=== PATIENT | male | born 1985 | race Caucasian/White ===

== ENCOUNTER 2021-05-16 15:48 | Outpatient (CLI) | payer OTHER, SELFPAY ==
--- NOTE | 2021-05-20 12:32 | WPDHOLTEREM ---
Holter/Event Monitor Holter/Event Monitor Date of procedure: 05/16/21 Holter/Event Procedure: 24 Hr Holter Monitor Indications: Palpitations Conclusion: 1. 24 hour holter monitor on 05/16/21. 2. Underlying rhythm is sinus rhythm. HR range 43-129 bpm; average HR 73 bpm. 3. There are 5 premature supraventricular complexes and 2 supraventricular couplets. No supraventricular tachycardia. 4. No premature ventricular complexes. No ventricular tachycardia. 5. No sinoatrial or atrioventricular blocks. No significant pauses greater than 2 seconds. 6. No symptoms available for correlation.
== END 2021-05-16 15:49 | disposition home or self-care (01) ==
PROVIDERS: PCP Internal Medicine; Visit Provider Physician Assistant
DX: R00.2 Palpitations (principal)
CPT/HCPCS: 93225; 93226

== ENCOUNTER → 2021-09-12 04:13 | Outpatient (CLI) | payer OTHER, SELFPAY ==
[2021-09-12 17:24] LABS: SARS-CoV-2 RNA PCR Negative
== END ==
PROVIDERS: PCP Internal Medicine; Visit Provider Internal Medicine Gastroenterology
DX: Z01.812 Encounter for preprocedural laboratory examination (principal); Z20.822 Contact with and (suspected) exposure to COVID-19
CPT/HCPCS: C9803; U0003; U0005

== ENCOUNTER 2021-09-15 00:50 | Day surgery (SDC) | payer OTHER, SELFPAY ==
[2021-08-25 14:28] VITALS: BMI 25.6
[2021-09-15 08:03] VITALS: BP 116/74; PULSE 62; RESP 18; TEMP 36.7; O2SAT 100; BMI 24.7
--- NOTE | 2021-09-15 08:13 | WPDANESEPPF ---
Anes - Initial Pre Proc Eval Procedure: Operation Date: 09/15/21 09:00 Proposed Procedures p Colonoscopy - Amaury Tripp MD Date/Time: 09/15/21 08:13 Surgeon: Amaury Tripp MD Pre Op Diagnosis: melena Patient Data Age: 36 Gender: M Height: 1.91 m Weight: 89.6 kg Last Vital Signs Temp 36.7 C 09/15/21 08:03 Pulse 62 09/15/21 08:03 Resp 18 09/15/21 08:03 BP 116/74 09/15/21 08:03 Pulse Ox 100 09/15/21 08:03 Allergies Allergy/AdvReac Type Severity Reaction Status Date / Time No Known Allergies Allergy Mild Verified 09/15/21 08:02 Home Medications Medication Instructions Recorded Confirmed Type pantoprazole 40 mg tablet,delayed 40 mg PO QAM #90 tablet 07/04/21 08/25/21 Rx release fluticasone propionate 50 2 spray INTRANASAL DAILY #16 g 07/31/21 08/25/21 Rx mcg/actuation nasal spray,suspension hydrocortisone 2.5 % topical cream 1 applic TOPICAL TID PRN #30 g 07/31/21 08/25/21 Rx Patient hx anesthesia problems: none Family hx anesthesia problems: none Results Review: All pre-operative results and documents have been reviewed as part of the pre-operative evaluation. [facility], LAT[facility] Past Medical History Medical History Allergies Migraine Surgical History Surgical History Vocal cord anomaly Family History Family History Mother Breast cancer Diabetes mellitus Social History Social History Smoking status: Never smoker Tobacco type: smokeless tobacco Smokeless tobacco user: chewing tobacco Smoking end date: 11/08/06 Alcohol intake: current Substance use: unknown Substance use type: does not use Living arrangements: with family Anes - Eval Final PreProcedure Day of Procedure 09/15/21 08:13 Patient weight: normal Heart: regular rate and rhythm Lungs: clear to auscultation Airway: Mallampati scale class 1 Neurological: alert and oriented Last oral intake: >/= 8 hours ASA classification: II Emergent: no Anesthetic plan: proceed Anesthesia type and monitoring: general GIVS and standard monitoring Results Review: All pre-operative results and documents have been reviewed as part of the pre-operative evaluation. Informed Consent: The patient's anesthetic plan and its attendant risks and benefits were discussed with the patient/family/POA. Questions were solicited and answers provided to the satisfaction of the patient/family/POA.
[2021-09-15] MEDS: LACTATED RINGERS 1,000 ML 150 ML IV CONT (08:15)
--- NOTE | 2021-09-15 08:37 | PM.HPGS ---
History of Present Illness History of Present Illness Consent: Risks, benefits, and alternatives have been discussed and questions answered. Patient agrees to proceed with procedure. Chief complaint: melena Narrative: Bradley Bush is a 36 year old male with intermittent rectal bleeding, never had colonoscopy Review of Systems Constitutional: Constitutional: Denies headache(s) and Denies weakness Eyes: Eyes: Denies blurry vision ENT: Reports Normal hearing present, Denies headache(s) and Denies neck pain Cardiovascular: Cardiovascular: Denies chest pain and Denies dyspnea Respiratory: Respiratory: Denies dyspnea Gastrointestinal: Gastrointestinal: Reports no additional gastrointestinal complaints Genitourinary: Genitourinary: Denies dysuria Musculoskeletal: Musculoskeletal: Denies neck pain Integumentary/Breasts: Skin/Breast: Denies dry skin Neurologic: Reports Normal hearing present, Denies headache(s) and Denies weakness Psychiatric: Psychiatric: Denies anxiety Endocrine: Endocrine: Denies change in body appearance Hematologic/Lymphatic: Hematologic/Lymphatic: Denies easy bleeding Allergic/Immunologic: Allergic/Immunologic: Denies urticaria PMFSH Past Medical History Medical History (Updated 09/15/21 @ 08:38 by Amaury Tripp MD) Allergies Migraine Rectal bleeding Surgical History Surgical History Vocal cord anomaly Family History Family History Mother Breast cancer Diabetes mellitus Social History Social History Smoking status: Never smoker Tobacco type: smokeless tobacco Smokeless tobacco user: chewing tobacco Smoking end date: 11/08/06 Alcohol intake: current Substance use: unknown Substance use type: does not use Living arrangements: with family Meds Home Medications and Allergies Home Medications Medication Instructions Recorded Confirmed Type pantoprazole 40 mg tablet,delayed 40 mg PO QAM #90 tablet 07/04/21 08/25/21 Rx release fluticasone propionate 50 2 spray INTRANASAL DAILY #16 g 07/31/21 08/25/21 Rx mcg/actuation nasal spray,suspension hydrocortisone 2.5 % topical cream 1 applic TOPICAL TID PRN #30 g 07/31/21 08/25/21 Rx Allergies Allergy/AdvReac Type Severity Reaction Status Date / Time No Known Allergies Allergy Mild Verified 09/15/21 08:02 Vital Signs Vital Signs - 24 hr 09/15/21 08:03 Temperature 98.0 F Pulse Rate 62 Respiratory Rate 18 Blood Pressure 116/74 Pulse Oximetry 100 Exam Const: General: comfortable and no acute distress HENMT: General nose exam: Normal nares present Eyes: General: appearance normal, both eyes and all related structures Neck: Neck: no JVD Resp: Auscultation: clear to auscultation bilaterally Cardio: Rate: regular rate Rhythm: regular rhythm GI: Inspection: non-distended GI Palp: Yes Soft to palpation Skin: General skin exam: normal color Neuro: General: gait normal Speech: normal speech Extrem: General: normal to inspection Psych: Mental Status: mental status grossly normal Assessment and Plan Assessment and plan (1) Rectal bleeding: Code(s): K62.5 - Hemorrhage of anus and rectum Status: Acute Assessment and Plan: colonoscopy to assess source of bleeding
[2021-09-15 09:00] VITALS: BP 103/74; PULSE 64; RESP 16; TEMP 36.7; O2SAT 100
[2021-09-15 09:10] VITALS: BP 125/92; PULSE 60; RESP 19; TEMP 36.7; O2SAT 99
[2021-09-15 09:20] VITALS: BP 135/85; PULSE 55; RESP 19; O2SAT 99
== END 2021-09-15 10:15 | disposition home or self-care (01) ==
PROVIDERS: PCP Internal Medicine; Visit Provider Internal Medicine Gastroenterology
PROC: 0DJD8ZZ Inspection of Lower Intestinal Tract, Via Natural or Artificial Opening Endoscopic (ICD-10-PCS; CPT 45378; principal; 2021-09-15 09:00)
DX: K92.1 Melena (principal); K64.8 Other hemorrhoids; F17.290 Nicotine dependence, other tobacco product, uncomplicated
CPT/HCPCS: 45378; C9803; J2704; J7120; U0003; U0005

== ENCOUNTER 2024-04-28 14:28 | Outpatient (CLI) | payer OTHER, SELFPAY ==
--- NOTE | ~2024-04-28 | MR_ITS ---
EXAMINATION: MR lumbar spine wo con DATE: 04/28/2024 15:49 INDICATION: Lumbar radiculopathy. TECHNIQUE: Magnetic resonance imaging (MRI) of the lumbar spine was performed without intravenous con trast. Sequences included sagittal T2-weighted FSE, sagittal T2-weighted FS FSE, sagittal T1-weighted FSE, and axial T2-weighted FSE. COMPARISON: None FINDINGS: Bone alignment is normal. Vertebral body heights are normal. There is mildly decreased disc height at L4-L5 and L5-S1. The distal spinal cord signal intensity is normal. The conus medullaris i s at L1. The following disc levels are specifically discussed: L1-L2: The disc does not extend beyond the endplate margin. There is mild bilateral facet joint osteo arthritis. There is no neural foraminal stenosis. There is no central canal stenosis. L2-L3: The disc does not extend beyond the endplate margin. There is mild bilateral facet joint osteo arthritis. There is no neural foraminal stenosis. There is no central canal stenosis. L3-L4: The disc is bulging. There is moderate bilateral facet joint osteoarthritis. There is mild yocasta ateral neural foraminal stenosis. There is mild central canal stenosis. L4-L5: The disc is bulging and has an annular fissure. There is moderate right and mild left facet mika int osteoarthritis. There is mild bilateral neural foraminal stenosis. There is mild central canal st enosis. L5-S1: The disc is bulging and has an annular fissure. There is moderate bilateral facet joint osteoa rthritis. There is mild bilateral neural foraminal stenosis. There is mild central canal stenosis. IMPRESSION: 1. Mild lumbar spondylosis. Reviewed, dictated and finalized at location E. IMPRESSION: 1. Mild lumbar spondylosis.
--- NOTE | ~2024-04-28 | MR_ITS ---
EXAMINATION: MR hip LT wo con DATE: 04/28/2024 15:39 INDICATION: Left hip pain. TECHNIQUE: Magnetic resonance imaging (MRI) of the left hip was performed without intravenous contras t. COMPARISON: None FINDINGS: Bones/cartilage: Bone alignment is normal. No fracture. Bilaterally, there is decreased femoral head/neck offset anter olaterally, which may be seen with femoral acetabular impingement. There are benign bone islands in l eft femoral head and neck. The hip joints demonstrate tiny osteophytes. Small [id number] images of the left hip demonstrate normal cartilage. Labrum: There is a tear of the left acetabular labrum. Fluid: There is no hip joint effusion. No significant trochanteric bursitis. Soft tissues: The gluteus minimus and gluteus medius tendons are normal. The hamstring tendon origins are normal. T he iliopsoas tendons are normal. IMPRESSION: 1. Tear of left acetabular labrum. 2. Decreased femoral head/neck offset bilaterally, which may be seen with femoral acetabular impingem ent. Reviewed, dictated and finalized at location E. IMPRESSION: 1. Tear of left acetabular labrum. 2. Decreased femoral head/neck offset bilaterally, which may be seen with femor al acetabular impingement.
== END 2024-04-28 14:29 ==
LOC: MICIMG 14:28
PROVIDERS: PCP Physician Assistant; Visit Provider Nurse Practitioner Family
DX: M47.26 Other spondylosis with radiculopathy, lumbar region (principal); S73.102A Unspecified sprain of left hip, initial encounter; X58.XXXA Exposure to other specified factors, initial encounter
CPT/HCPCS: 72148; 73721